=== PATIENT | female | born 1980 | race Caucasian/White ===

== ENCOUNTER → 2022-12-24 11:23 | Outpatient (BNVA) | payer OTHER, SELFPAY | PROVIDERS: Visit Provider Physician Assistant Surgical ==

== ENCOUNTER 2023-01-23 10:57 | Outpatient (AMB) | payer OTHER, SELFPAY ==
--- NOTE | 2023-01-23 10:59 | MHC.OFFVISWM ---
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 Then had 2 pregnancies. Developed perforated gastric ulcer in 2017 and had emergent laparoscopic surgery to repair. Was hospitalized for 1 week without complications. Her goal is to get off metoprolol and have a healthy more active life. . She reports first being concerned about her weight since age 10. She lives with and 2 children. She is stay at home parent. She wakes at: 6:30 am, bed at 10:30 - takes 60 - 90 minutes to fall asleep. Uses CPAP nightly. Breakfast: 6:45 am - 2 eggs with cheese, 1 slice toast with PB or avocado or butter. Or potatoes. Coffee 1-2 cups with unsweetened almond milk. Lunch: 12 -1pm - PB &J sandwich or leftovers, water Dinner: 5-6 pm - 5 oz protein and roasted potatoes 1 cup and 2 cups vegetables. After dinner: kettle corn, pastries - 1-2 servings per night. Other snacks: mid morning half bagel with cream cheese. Afternoon - another cup of coffee with spoon of PB or chips or popcorn Liquids: no soda, no fruit drinks. Drinks 2-3 cans seltzer per day Alcohol intake: sober for 2 years - went to detox to quit her alcoholism. tobacco: none since GBP, marijuana: none x 2 years Exercise: now has PF membership - started at gym last week. 3d/wk- treadmill x 15 minutes, speed 3, interval incline - ? calories. then knees hurt and she gets off. Then goes to rower or recumbent bike - 15 - 20 minutes. Last mammogram: Apr 2022 - benign Last pap smear: November 2022 control method: vasectomy colonoscopy - x 3 - all normal fathter with colon cancer. EGC - August 2021 - all normal ANT: 8 ESS: 7 GERD: 16 QOL: 111 PFSH Surgical History (Updated 01/23/23 @ 11:08 by Carlene Orellana PA-C) Hx of cholecystectomy Hx of gastric bypass Hx of tonsillectomy Family History Mother Diverticulitis Depression Anxiety Father Colon cancer Epilepsy Osteoarthritis Acquired underactive thyroid Afib Sister Depression Anxiety Sister Anxiety Depression Sister Depression Anxiety Sister Endometriosis Son ADHD Autism Son ADHD Autism Social History (Updated 12/24/22 @ 11:32 by Kena Alex [facility]) Alcohol intake: former Patient Tobacco Use Status: Former Tobacco user Quit Date: 14 YRS AGO Physical Exam Const General: cooperative, no acute distress and well developed Nutritional Appearance: obese Orientation/consciousness: patient oriented x3 HEENT Head: Yes normal to inspection Neck Neck: Yes normal visual inspection Thyroid: Thyroid normal Resp Effort & Inspection: normal respiratory effort Auscultation: clear to auscultation bilaterally Cardio Rate: regular rate Rhythm: regular rhythm Heart sounds: S1 normal heart sound present, S2 normal heart sound present and no murmurs GI Inspection: No distended and Yes obesity Palpation (GI): Soft to palpation, nontender and no guarding Skin General skin exam: no rashes or lesions noted and other (warm and dry) Wounds: no wounds Hair: normal Neuro General: patient oriented x3 Extrem General: Yes no pedal edema and Yes no calf tenderness Psych Attitude: cooperative Thought process: Normal thought process present Thought content: Normal thought content present Insight: Good insight present (Psych) Judgement: Good judgement present (Psych) Assessment & Plan Assessment & Plan (1) Morbid obesity: Code(s): E66.01 - Morbid (severe) obesity due to excess calories Plan: This is a 42 yo woman s/p GBP then emergent surgery for perforated gastric ulcer 7 years later and hx of alcoholism. She has been sober for 2 years. I told her that I would discuss her case with our biomedical engineering technologist to evaluate her appropriateness for revision surgery. We are obtaining OR reports form GBP, ulcer [facility] Patient has significant trauma history and has restarted old habits. She wants to find a therapist - I recommended she start wit [facility] referrals. 1. Adequate sleep of 7-8 hours per night discussed, must use CPAP nightly 2. Healthy meal plan - stop all carbonated beverages, and snacking. All meals/MR's need to take 20 -30 minutes to complete 8am - 30 gram shake 9am coffee 11 am - yogurt or bar 2 pm- shake 5 pm- dinner of 4 oz lean protein, 4 oz vegetable, 1/2 serving fruit 8pm - bar or yogurt Exercise - Cardio 4 d week = 10 edouard/minute or recumbent bike or rower - 350 calories burned 3 d/ wk - circuit room 10/10/[address] videos at home The importance of avoiding and breast feeding for at least 18 months after bariatric surgery was discussed in the information session and was reinforced today. Pt will purchase body composition analyzer (recommended list given to patient) and weight herself weekly. Next appt with me in 3 weeks. Text me with any questions and weekly weights. Patient is morbidly obese and is not considered stable at this time.?I spent a total of 60 minutes reviewing/updating records, examining the patient and counseling the patient on weight management as detailed above. (2) Hx of gastric bypass: Comment: [facility] 2009 Code(s): Z98.84 - Bariatric surgery status (3) Pre-op evaluation: Code(s): Z01.818 - Encounter for other preprocedural examination (4) Steatosis, liver: Code(s): K76.0 - Fatty (change of) liver, not elsewhere classified (5) GERD (gastroesophageal reflux disease): Code(s): K21.9 - Gastro-esophageal reflux disease without esophagitis (6) Depression with anxiety: Code(s): F41.8 - Other specified anxiety disorders (7) Eczema: Code(s): L30.9 - Dermatitis, unspecified (8) AMIE on CPAP: Code(s): G47.33 - Obstructive sleep apnea (adult) (pediatric) (9) SVT (supraventricular tachycardia): Code(s): I47.1 - Supraventricular tachycardia (10) Perforated gastric ulcer: Comment: repaired 2017 Code(s): K25.5 - Chronic or unspecified gastric ulcer with perforation Orders: Orders Vitamin B12 and Folate Today E66.01 - Morbid (severe) obesity due to excess calories, K21.9 - Gastro-esophageal reflux disease without esophagitis, K25.5 - Chronic or unspecified gastric ulcer with perforation, Z01.818 - Encounter for other preprocedural examination, Z98.84 - Bariatric surgery status Comprehensive Met. Panel Today E66.01 - Morbid (severe) obesity due to excess calories, K21.9 - Gastro-esophageal reflux disease without esophagitis, K25.5 - Chronic or unspecified gastric ulcer with perforation, Z01.818 - Encounter for other preprocedural examination, Z98.84 - Bariatric surgery status C Reactive Protein Today E66.01 - Morbid (severe) obesity due to excess calories, K21.9 - Gastro-esophageal reflux disease without esophagitis, K25.5 - Chronic or unspecified gastric ulcer with perforation, Z01.818 - Encounter for other preprocedural examination, Z98.84 - Bariatric surgery status Ferritin Today E66.01 - Morbid (severe) obesity due to excess calories, K21.9 - Gastro-esophageal reflux disease without esophagitis, K25.5 - Chronic or unspecified gastric ulcer with perforation, Z01.818 - Encounter for other preprocedural examination, Z98.84 - Bariatric surgery status Hemoglobin A1c Today E66.01 - Morbid (severe) obesity due to excess calories, K21.9 - Gastro-esophageal reflux disease without esophagitis, K25.5 - Chronic or unspecified gastric ulcer with perforation, Z01.818 - Encounter for other preprocedural examination, Z98.84 - Bariatric surgery status Insulin Today E66.01 - Morbid (severe) obesity due to excess calories, K21.9 - Gastro-esophageal reflux disease without esophagitis, K25.5 - Chronic or unspecified gastric ulcer with perforation, Z01.818 - Encounter for other preprocedural examination, Z98.84 - Bariatric surgery status IRON PROFILE Today E66.01 - Morbid (severe) obesity due to excess calories, K21.9 - Gastro-esophageal reflux disease without esophagitis, K25.5 - Chronic or unspecified gastric ulcer with perforation, Z01.818 - Encounter for other preprocedural examination, Z98.84 - Bariatric surgery status Lipid Panel Today E66.01 - Morbid (severe) obesity due to excess calories, K21.9 - Gastro-esophageal reflux disease without esophagitis, K25.5 - Chronic or unspecified gastric ulcer with perforation, Z01.818 - Encounter for other preprocedural examination, Z98.84 - Bariatric surgery status PTHI Today E66.01 - Morbid (severe) obesity due to excess calories, K21.9 - Gastro-esophageal reflux disease without esophagitis, K25.5 - Chronic or unspecified gastric ulcer with perforation, Z01.818 - Encounter for other preprocedural examination, Z98.84 - Bariatric surgery status TSH reflex Free T4 Today E66.01 - Morbid (severe) obesity due to excess calories, K21.9 - Gastro-esophageal reflux disease without esophagitis, K25.5 - Chronic or unspecified gastric ulcer with perforation, Z01.818 - Encounter for other preprocedural examination, Z98.84 - Bariatric surgery status Vitamin A Today E66.01 - Morbid (severe) obesity due to excess calories, K21.9 - Gastro-esophageal reflux disease without esophagitis, K25.5 - Chronic or unspecified gastric ulcer with perforation, Z01.818 - Encounter for other preprocedural examination, Z98.84 - Bariatric surgery status Vitamin B1 Today E66.01 - Morbid (severe) obesity due to excess calories, K21.9 - Gastro-esophageal reflux disease without esophagitis, K25.5 - Chronic or unspecified gastric ulcer with perforation, Z01.818 - Encounter for other preprocedural examination, Z98.84 - Bariatric surgery status Vitamin D 25-OH Total Today E66.01 - Morbid (severe) obesity due to excess calories, K21.9 - Gastro-esophageal reflux disease without esophagitis, K25.5 - Chronic or unspecified gastric ulcer with perforation, Z01.818 - Encounter for other preprocedural examination, Z98.84 - Bariatric surgery status Zinc Today E66.01 - Morbid (severe) obesity due to excess calories, K21.9 - Gastro-esophageal reflux disease without esophagitis, K25.5 - Chronic or unspecified gastric ulcer with perforation, Z01.818 - Encounter for other preprocedural examination, Z98.84 - Bariatric surgery status FL upper GI w air Today E66.01 - Morbid (severe) obesity due to excess calories, K21.9 - Gastro-esophageal reflux disease without esophagitis, K25.5 - Chronic or unspecified gastric ulcer with perforation, Z01.818 - Encounter for other preprocedural examination, Z98.84 - Bariatric surgery status Complete Blood Count Auto Diff Today E66.01 - Morbid (severe) obesity due to excess calories, K21.9 - Gastro-esophageal reflux disease without esophagitis, K25.5 - Chronic or unspecified gastric ulcer with perforation, Z01.818 - Encounter for other preprocedural examination, Z98.84 - Bariatric surgery status H Pylori Breath Test Today E66.01 - Morbid (severe) obesity due to excess calories, K21.9 - Gastro-esophageal reflux disease without esophagitis, K25.5 - Chronic or unspecified gastric ulcer with perforation, Z01.818 - Encounter for other preprocedural examination, Z98.84 - Bariatric surgery status Referrals Behavioral Health Referral E66.01 - Morbid (severe) obesity due to excess calories, K21.9 - Gastro-esophageal reflux disease without esophagitis, K25.5 - Chronic or unspecified gastric ulcer with perforation, Z01.818 - Encounter for other preprocedural examination, Z98.84 - Bariatric surgery status Nutrition/Dietitian Referral E66.01 - Morbid (severe) obesity due to excess calories, K21.9 - Gastro-esophageal reflux disease without esophagitis, K25.5 - Chronic or unspecified gastric ulcer with perforation, Z01.818 - Encounter for other preprocedural examination, Z98.84 - Bariatric surgery status Coding Level of Care Code New Pt Level 5 (02508) Diagnoses Morbid obesity E66.01 Hx of gastric bypass Z98.84 Pre-op evaluation Z01.818 Steatosis, liver K76.0 GERD (gastroesophageal reflux disease) K21.9 Depression with anxiety F41.8 Eczema L30.9 AMIE on CPAP G47.33 SVT (supraventricular tachycardia) I47.1 Perforated gastric ulcer K25.5
[2023-01-23 11:11] VITALS: BP 132/59; PULSE 72; TEMP 36.5; O2SAT 97; BMI 46.2
== END 2023-01-23 12:17 | disposition home or self-care (01) ==
PROVIDERS: Visit Provider Physician Assistant
DX: E66.01 Morbid (severe) obesity due to excess calories (principal); Z68.42 Body mass index [BMI] 45.0-49.9, adult; Z98.84 Bariatric surgery status; G47.33 Obstructive sleep apnea (adult) (pediatric)
CPT/HCPCS: 99205

== ENCOUNTER → 2023-01-23 10:57 | Outpatient (BNVA) | payer OTHER, SELFPAY | PROVIDERS: Visit Provider Physician Assistant ==

== ENCOUNTER → 2023-02-07 13:00 | Outpatient (BNVA) | payer OTHER, SELFPAY | PROVIDERS: PCP Internal Medicine; Referring Provider Physician Assistant; Visit Provider Dietitian, Registered | DX: E66.9 Obesity, unspecified (principal); Z98.84 Bariatric surgery status; Z71.3 Dietary counseling and surveillance | CPT/HCPCS: 97802 ==

== ENCOUNTER 2023-03-07 09:20 | Outpatient (REF) | payer OTHER, SELFPAY ==
[2023-03-07 10:39] LABS: MANUAL DIFF FLAG NO
[2023-03-07 11:07] LABS: Basophils Percent Auto 0.4 % (0-2); Eosinophils Absolute Auto 0.2 X10*3/uL (0.0-0.4); Eosinophils Percent Auto 2.1 % (0-4); Hematocrit 34.6 % (37.0-47.0); Hemoglobin 11.1 g/dl (12.0-16.0); Imm Gran Abs Auto 0.03 X10*3/uL (0.00-0.03); Imm Gran Pct Auto 0.4 % (0.0-0.4); Lymphocytes Percent Auto 26.9 % (20-40); Mean Corpuscular HGB Conc 32.1 g/dl (31.0-35.0); Mean Corpuscular Hemoglobin 26.5 pg (27.0-33.0); Mean Corpuscular Volume 82.6 fL (80.0-98.0); Monocytes Absolute Auto 0.5 X10*3/uL (0.1-1.2); Monocytes Percent Auto 6.9 % (2-11); Neutrophils Absolute Auto 4.6 x10*3/uL (2.0-8.3); Neutrophils Percent Auto 63.3 % (45-73); Platelet Count 231 X10*3/uL (160-400); Red Blood Count 4.19 X10*6/uL (4.20-5.50); Red Cell Distribution Width 14.6 % (11.0-16.0); White Blood Count 7.3 X10*3/uL (4.8-10.8)
[2023-03-07 11:39] LABS: C Reactive Protein 1.81 mg/dL (< or = 0.50); Iron 66 mcg/dL (30-160); Percent Iron Saturation 17 % (15-50); Total Iron Binding Capacity 380 mcg/dL (228-428); Unsaturated Iron Binding 314 ug/dL
[2023-03-07 11:52] LABS: Ferritin 12 ng/mL (10-250); Vitamin D 25-OH Total 46.8 ng/mL (>30)
[2023-03-07 12:01] LABS: Folate 14.1 ng/mL (> or = 4.0); Vitamin B12 420 pg/mL (200-900)
[2023-03-11 13:59] LABS: Calcium (PTHI) 9.2 mg/dL (8.6-10.2); PTHI 45 pg/mL (16-77)
[2023-03-12 02:24] LABS: Zinc 70 mcg/dL (60-130)
[2023-03-12 15:33] LABS: Vitamin B1 16 nmol/L (8-30)
[2023-03-14 00:39] LABS: Vitamin A 46 mcg/dL (38-98)
== END 2023-03-07 09:21 | disposition home or self-care (01) ==
LOC: HO.LAB 09:20
PROVIDERS: PCP Internal Medicine; Visit Provider Physician Assistant
DX: Z01.818 Encounter for other preprocedural examination (principal); E66.01 Morbid (severe) obesity due to excess calories; K21.9 Gastro-esophageal reflux disease without esophagitis; K25.5 Chronic or unspecified gastric ulcer with perforation; I47.1 Supraventricular tachycardia; D64.9 Anemia, unspecified; Z98.84 Bariatric surgery status
CPT/HCPCS: 36415; 82306; 82607; 82728; 82746; 83540; 83970; 84425; 84590; 84630; 85025; 86140

== ENCOUNTER 2023-03-07 09:20 | Outpatient (AMB) | payer OTHER, SELFPAY ==
--- NOTE | 2023-03-07 09:28 | A.OFFVIS_ITS ---
Intake VS Expanded 03/07/23 09:33 Height 5 ft 10 in Weight 318 lb 9.6 oz BMI 45.7 BP 123/59 L Blood Pressure Location Rt brachial Blood Pressure Position Sitting Pulse 77 Pulse Source Pulse Oximeter Temp 97.2 F Temperature Source Temporal Artery Scan Pulse Oximetry 96 Oxygen Delivery Method Room Air Body Fat 155.6 Body Fat Percentage 48.9 Free Fat Mass 163.0 Muscle Mass 154.8 Visceral Mass 15.0 Water Mass 116.4 BMR 2,352 Intake Visit Reasons: (OV) F/U SWL TO [facility] Allergies hydromorphone [From Dilaudid] Allergy (Intermediate, Verified 01/24/23 11:29) Hives Medication List - Last Reconciled 03/07/23 by Carlene Orellana PA-C bupropion HCl 100 mg PO BID dupilumab (Dupixent) 300 mg subcut Q2W metoprolol succinate ER 100 mg PO DAILY omeprazole 40 mg PO BID HPI HPI Comments History of Present Illness Details Pt is not a surgical candidate per Dr Plummer. She did not get the labs drawn but has results from August 2022: Hgb - 11.4 CMP - normal Hgb A1C - 5.0 Insulin - 11.8 Lipids - total 207, TRG - 145, LDL - 124, HDL - 57 TSH - 2.06 Presently wearing Holter monitor for SVT. She states that when she started our program she felt ddizzy and could not tolerate the meal plan Meal plan now: 7:30 am - 2 eggs and cheese with a slice of toast with olive oil or butter. Coffee with whole milk 11:30 am - leftovers and salad. (4 oz pr otien and not measuring vegetables - often canned from food pantry). water 3 pm - piece of fruit - bananas OR 1 1 T BL PB 5-6 pm- protein, veg and carb - small po rtions but not measuring has deli meat at night - but would have yogurt Exercise - gym - 3-4 d/week - bike - for 200 calories, rower - ? calories OR circuit room. Walks - 4 miles at 20 minute mile pace. PFSH Surgical History Hx of tonsillectomy Hx of gastric bypass Hx of cholecystectomy Family History Mother Diverticulitis Depression Anxiety Father Colon cancer Epilepsy Osteoarthritis Acquired underactive thyroid Afib Sister Depression Anxiety Sister Anxiety Depression Sister Depression Anxiety Sister Endometriosis Son ADHD Autism Son ADHD Autism Social History Alcohol intake: former Patient Tobacco Use Status: Former Tobacco user Quit Date: 14 YRS AGO Physical Exam Vital Signs: Last Vital Signs Temp 97.2 F 03/07/23 09:33 Pulse 77 03/07/23 09:33 BP 123/59 L 03/07/23 09:33 Pulse Ox 96 03/07/23 09:33 Oxygen Delivery Method Room Air 03/07/23 09:33 BMI result Body Mass Index 45.7 Assessment & Plan Assessment & Plan (1) Morbid obesity: Code(s): E66.01 - Morbid (severe) obesity due to excess calories Plan: 8am - 2 eggs with 1/2 c vegetables, Arian Killer Bread - thin slice. coffee - milk 11:30 - 30 gram shake - 3pm - yogurt, apple with 2 TBL PB or celery with PB, 6pm - 4 oz and 4 oz 9pm - alternate with 3pm Exercise - to burn 400 calories 5d/ week. Will have monthly visits for [facility]. Patient is morbidly obese and is not considered stable at this time. I spent 30 minutes in total with patient reviewing/updating records, examining the patient and counseling the patient on weight management as detailed above. (2) Hx of gastric bypass: Comment: [facility] 2009 Code(s): Z98.84 - Bariatric surgery status (3) SVT (supraventricular tachycardia): Code(s): I47.1 - Supraventricular tachycardia (4) Anemia: Code(s): D64.9 - Anemia, unspecified Coding Level of Care Code Est Pt Level 4 (68923) Diagnoses Morbid obesity E66.01 Hx of gastric bypass Z98.84 SVT (supraventricular tachycardia) I47.1 Anemia D64.9
[2023-03-07 09:33] VITALS: BP 123/59; PULSE 77; TEMP 36.2; O2SAT 96; BMI 45.7
== END 2023-03-07 10:20 | disposition home or self-care (01) ==
PROVIDERS: PCP Internal Medicine; Visit Provider Physician Assistant
DX: E66.01 Morbid (severe) obesity due to excess calories (principal); Z68.42 Body mass index [BMI] 45.0-49.9, adult; I47.1 Supraventricular tachycardia; D64.9 Anemia, unspecified
CPT/HCPCS: 99214

== ENCOUNTER 2023-04-15 09:45 | Outpatient (AMB) | payer OTHER, SELFPAY ==
--- NOTE | 2023-04-15 09:47 | A.OFFVIS_ITS ---
Intake VS Expanded 04/15/23 09:53 BP 128/52 L Blood Pressure Location Rt brachial Blood Pressure Position Sitting Pulse 76 Pulse Source Pulse Oximeter Temp 97.4 F Temperature Source Tympanic Pulse Oximetry 97 Oxygen Delivery Method Room Air Height 5 ft 10 in Weight 318 lb 3.2 oz BMI 45.7 Body Fat % 50.5 Body Fat Mass 160.8 Fat Free Mass 157.4 Visceral Fat Rating 16.0 Body Water % 35.3 Body Water Mass 112.4 Muscle Mass/Score 149.4 Basal Metabolic Rate/Score 2,285 Intake Visit Reasons: (OV) F/U [facility] Allergies hydromorphone [From Dilaudid] Allergy (Intermediate, Verified 01/24/23 11:29) Hives HPI HPI Comments 2 History of Present Illness Details Pt is s/p GBP and is not a surgical candidate for revision due to complications post op. Started [facility] program January 23 at 322 lbs. Saw Lucille once and wants a food based plan, had appt with Tania, no follow up planned. Recovering from COVID now unable to exercise for 1.5 weeks, not restarted yet. No weight loss. 7 am - 1-2 eggs cheese and icelandic muffi n. coffee - soymilk fruit mid morning 12:30 - leftovers - not measuring, 3-4 o z proten and carbs some vegetables. 6pm - 4 oz protein, cravs and vegetable (not measured) and 4 oz 9pm - raw vegetables and yogurt dip or P B Exercise - gym - 4 days/ week. bicycle - hill program - 30 minutes OR treadmill random cycle - 30 minutes ? calories burned. PFSH Surgical History Hx of tonsillectomy Hx of gastric bypass Hx of cholecystectomy Family History Mother Diverticulitis Depression Anxiety Father Colon cancer Epilepsy Osteoarthritis Acquired underactive thyroid Afib Sister Depression Anxiety Sister Anxiety Depression Sister Depression Anxiety Sister Endometriosis Son ADHD Autism Son ADHD Autism Social History Alcohol intake: former Patient Tobacco Use Status: Former Tobacco user Quit Date: 14 YRS AGO Assessment & Plan Assessment & Plan (1) Morbid obesity: Code(s): E66.01 - Morbid (severe) obesity due to excess calories Plan: Pt is not following our meal and exericseplans, does not seem to understand why this woudl work for her. Using food pantry for food mostly. eal- breakfast 8-9am - 2 eggs with 1/2 veg and 1 slice homemade ww bread. coffee with soymilk lunch - shake dinner - 4 oz protien and 4 oz combo of healthy carbs and vegetables snack - raw vegetables with yougrt dip or PB. Next appt month, scheduled with Tania johnson. Encouraged to text me with 2 lbs per week. Patient is morbidly obese and is not considered stable at this time. I spent 30 minutes in total with patient reviewing/updating records, examining the patient and counseling the patient on weight management as detailed above. Needs to increase exercise - 2,000 edouard per week on cradio at least 4d/ week and 3d ST per week - wants to do weights. UE - 3 [id number] lbs 15 reps , 3 sets Abd - 2 mahicnes (2) Hx of gastric bypass: Comment: [facility] 2009 Code(s): Z98.84 - Bariatric surgery status Coding Level of Care Code Est Pt Level 4 (94722) Diagnoses Morbid obesity E66.01 Hx of gastric bypass Z98.84
[2023-04-15 09:53] VITALS: BP 128/52; PULSE 76; TEMP 36.3; O2SAT 97; BMI 45.7
== END 2023-04-15 10:39 | disposition home or self-care (01) ==
PROVIDERS: PCP Internal Medicine; Visit Provider Physician Assistant
DX: E66.01 Morbid (severe) obesity due to excess calories (principal); Z68.42 Body mass index [BMI] 45.0-49.9, adult; Z98.84 Bariatric surgery status
CPT/HCPCS: 99214

== ENCOUNTER → 2023-04-15 09:45 | Outpatient (BNVA) | payer OTHER, SELFPAY | PROVIDERS: PCP Internal Medicine; Visit Provider Physician Assistant ==

== ENCOUNTER 2023-05-08 09:45 | Outpatient (AMB) | payer OTHER, SELFPAY ==
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
--- OUTSIDE RECORDS SUMMARY | 2023-05-08 10:11 | XMS_ITS | Patient Health Record ---
Author Name Unknown Organization [address] [facility] Address [address] [facility] [address] [place] [address] Care Team Providers Care Bootmaker Hand Name Role Phone CHAN GUTIERRES Unavailable [phone] DAYLIN CASILLASSAIRA Tejada Unavailable ALLERGIES Allergen (clinical drug ingredient) Drug/Non Drug Allergy documented on EMR Reaction Allergy Type Onset Date Status hydromorphone Dilaudid hives Drug Allergy Act janet RESULTS Component Value Reference Range Notes LIPID PANEL, STANDARD Reviewed date:09/19/2022 02:51:41 PM Interpretation: Performing Lab:NL2, [facility] [id number] Danay Fisher Notes/Report: FASTING: YES FASTING:YES 0; 0; 0; 0; 0; 0 CHOLESTEROL, TOTAL 207 <200 mg/dL HDL CHOLESTEROL 57 > OR = 50 mg/dL TRIGLYCERIDES 145 <150 mg/dL LDL-CHOLESTEROL 124 Reference range: <100 Desirable range <100 mg/dL for primary prevention; <70 mg/dL for patients with CHD or diabetic patients with > or = 2 CHD risk factors. LDL-C is now calculated using the Shirley calculation, which is a validated novel method providing better accuracy than the Friedewald equation in the estimation of LDL-C. Josias BURNETT et al. SAHARA. 2013;310(19): 8286-4025 (http://education.MycoTechnology.Smart Plate/faq/ZUY917) CHOL/HDLC RATIO 3.6 <5.0 (calc) NON HDL CHOLESTEROL 150 <130 mg/dL (calc) For patients with diabetes plus 1 major ASCVD risk factor, treating to a non-HDL-C goal of <100 mg/dL (LDL-C of <70 mg/dL) is considered a therapeutic option. COMPREHENSIVE METABOLIC PANLora L Reviewed date:09/19/2022 07:58:36 AM Interpretation: Performing Lab:NL[facility], [facility] [address] Danay Fisher Notes/Report: 0; 0; 0; 0; 0; 0 FASTING:YES FASTING: YES GLUCOSE 89 65-99 mg/dL Fasting reference interval UREA NITROGEN (BUN) 14 7-25 mg/dL CREATININE 0.77 0.50-0.99 mg/dL EGFR 99 > OR = 60 mL/min/1.73m2 The eGFR is based on the CKD-EPI 2020 equation. To calculate the new eGFR from a previous Creatinine or Cystatin C result, go to https://www.kidney.org/pr ofessionals/ kdoqi/gfr%5Fcalculator BUN/CREATININE RATIO NOT APPLICABLE 6-22 (calc) SODIUM 136 135-146 mmol/L POTASSIUM 3.9 3.5-5.3 mmol/L CHLORIDE 104 98-110 mmol/L CARBON DIOXIDE 28 20-32 mmol/L CALCIUM 8.6 8.6-10.2 mg/dL PROTEIN, TOTAL 6.7 6.1-8.1 g/dL ALBUMIN 3.9 3.6-5.1 g/dL GLOBULIN 2.8 1.9-3.7 g/dL (calc) ALBUMIN/GLOBULIN RATIO 1.4 1.0-2.5 (calc) BILIRUBIN, TOTAL 0.4 0.2-1.2 mg/dL ALKALINE PHOSPHATASE 90 31-125 U/L AST 12 10-30 U/L ALT 11 6-29 U/L CBC (INCLUDES DIFF/PLT) Reviewed date:09/19/2022 02:51:37 PM Interpretation: Performing Lab:YUSRA2, [facility] [address] Danay Fisher Notes/Report: 0; 0; 0; 0; 0; 0 FASTING:YES FASTING: YES WHITE BLOOD CELL COUNT 8.1 3.8-10.8 Thousand/ uL RED BLOOD CELL COUNT 4.09 3.80-5.10 Million/uL HEMOGLOBIN 11.4 11.7-15.5 g/dL HEMATOCRIT 33.5 35.0-45.0 % MCV 81.9 80.0-100.0 fL MCH 27.9 27.0-33.0 pg MCHC 34.0 32.0-36.0 g/dL RDW 12.9 11.0-15.0 % PLATELET COUNT 208 140-400 Thousand/uL MPV 11.4 7.5-12.5 fL ABSOLUTE NEUTROPHILS 5111 2629-7434 cells/uL ABSOLUTE LYMPHOCYTES 2236 850-3900 cells/uL ABSOLUTE MONOCYTES 559 200-950 cells/uL ABSOLUTE EOSINOPHILS 162 15-500 cells/uL ABSOLUTE BASOPHILS 32 0-200 cells/uL NEUTROPHILS 63.1 LYMPHOCYTES 27.6 MONOCYTES 6.9 EOSINOPHILS 2.0 BASOPHILS 0.4 URINALYSIS, COMPLETE Reviewed date:09/19/2022 02:50:53 PM Interpretation: Performing Lab:PASHA, [facility] [address] Danay Fisher Notes/Report: 0; 0; 0; 0; 0; 0 FASTING:YES FASTING: YES COLOR YELLOW YELLOW APPEARANCE CLEAR CLEAR SPECIFIC GRAVITY 1.016 1.001-1.035 PH 7.0 5.0-8.0 GLUCOSE NEGATIVE NEGATIVE BILIRUBIN NEGATIVE NEGATIVE KETONES NEGATIVE NEGATIVE OCCULT BLOOD NEGATIVE NEGATIVE PROTEIN NEGATIVE NEGATIVE NITRITE NEGATIVE NEGATIVE LEUKOCYTE ESTERASE TRACE NEGATIVE WBC NONE SEEN < OR = 5 /HPF RBC NONE SEEN < OR = 2 /HPF SQUAMOUS EPITHELIAL CELLS 0-5 < OR = 5 /HPF BACTERIA NONE SEEN NONE SEEN /HPF HYALINE CAST NONE SEEN NONE SEEN /LPF NOTE This urine was analyzed for the presence of WBC, RBC, bacteria, casts, and other formed elements. Only those elements seen were reported. HEMOGLOBIN A1c Reviewed date:09/19/2022 07:58:36 AM Interpretation: Performing Lab:[employer], [facility] [address] Danay Fisher Notes/Report: FASTING: YES FASTING:YES 0; 0; 0; 0; 0; 0 HEMOGLOBIN A1c 5.0 <5.7 % of total Hgb For the purpose of screening for the presence of diabetes: <5.7% Consistent with the absence of diabetes 5.7-6.4% Consistent with increased risk for diabetes (prediabetes) > or =6.5% Consistent with diabetes This assay result is consistent with a decreased risk of diabetes. Currently, no consensus exists regarding use of hemoglobin A1c for diagnosis of diabetes in children. According to [place] Diabetes Association (ADA) guidelines, hemoglobin A1c <7.0% represents optimal control in non- diabetic patients. Different metrics may apply to specific patient populations. Standards of Medical Care in Diabetes(ADA). INSULIN Reviewed date:09/19/2022 07:58:36 AM Interpretation: Performing Lab:NL2, [facility] [address] Danay Fisher Notes/Report: 0; 0; 0; 0; 0; 0 FASTING:YES FASTING: YES INSULIN 11.8 Reference Range < or = 18.4 Risk: Optimal < or = 18.4 Moderate NA High >18.4 Adult cardiovascular event risk category cut points (optimal, moderate, high) are based on Insulin Reference Interval studies performed at [facility] in 2021. TSH Reviewed date:09/19/2022 07:58:36 AM Interpretation: Performing Lab:NL2, [facility] [address] Danay Fisher Notes/Report: 0; 0; 0; 0; 0; 0 FASTING:YES FASTING: YES TSH 2.06 Reference Range > or = 20 Years 0.40-4.50 Ranges First trimester 0.26-2.66 Second trimester 0.55-2.73 Third trimester 0.43-2.91 REASON FOR REFERRAL Reason OBGYN Diagnosis 1 Pap smear for cervic al cancer screening (Z12.4) Referral Organization [facility] Referring Provider First Name CHAN Referring Provider Last Name BHAVIK Referring Provider Speciality Internal M edicine Referred Provider Specialty OB - Gynecol ogy General Notes Pt has info for Amirah Rivas, she will call to book Clinical Notes Elizabeth Castaneda 0 09/17/2022 11:33:08 AM > Referral Priority Routine Diagnosis 1 Attention deficit hy peractivity disorder (ADHD), unspecified ADHD type (F90.9) Referral Organization [facility] Referring Provider First Name CHAN Referring Provider Last Name BHAVIK Referring Provider Speciality Internal M edicine Referred Provider Specialty Psychiatry General Notes Provider gave Pt a l ist of places to call to book, she will let us know if they need referral Clinical Notes Elizabeth Castaneda 0 09/17/2022 11:34:42 AM > Referral Priority Routine Reason Dry and cracked skin on feet Diagnosis 1 Dry skin (L85.3) Referral Organization [facility] Referring Provider First Name CHAN Referring Provider Last Name BHAVIK Referring Provider Speciality Internal edicine Referred Provider Specialty Podiatry General Notes Waiting for note kieran l fax to [facility] for dry cracked feet. Pt has information will call and book appt Clinical Notes Elizabeth Castaneda 0 09/17/2022 11:37:34 AM > Referral Priority Routine Reason Dr. Rodriguez Diagnosis 1 Screening for colon cancer (Z12.11) Referral Organization [facility] Referring Provider First Name CHAN Referring Provider Last Name BHAVIK Referring Provider Speciality Internal edicine Referred Provider Specialty Gastroentero logy General Notes Waiting for note to fax to Dr. Rodriguez Clinical Notes Elizabeth Castaneda 0 09/25/2022 11:27:14 AM >, Elizabeth Castaneda 09/25/2022 01:43:28 PM >Faxed via computer and fax, Elizabeth Castaneda 10/02/2022 04:24:44 PM >received fax with appt details for 08/15/23 @ 1:30 Referral Priority Routine MEDICATIONS Medication SIG (Take, Route, Frequency, Duration) Notes Start Date End Date Status Dupixent 300 MG/2ML as directed Subcutaneous Active metFORMIN HCl ER 500 MG TAKE 1 TABLET BY MOUTH EVERY DAY WITH EVENING MEAL for 30 Active Nirmatrelvir&Ritonavir 300/100 20 x 150 MG & 10 x 100MG 3 tablets Orally Twice a day for 5 days 03/18/2023 Active Esomeprazole Magnesium 40 MG 1 capsule Orally twice a day for 30 days Active Metoprolol Succinate ER 100 MG 1 tablet Orally Once a day for 90 days Active buPROPion HCl 100 MG TAKE 1 TABLET BY [facility] TWICE A DAY for 90 Active Multi Complete - as directed Orally Active IMMUNIZATIONS Vaccine Route Administration Date Status Comme nts influenza IM Intramuscular 03/06/2023 Administered SOCIAL HISTORY Sex Assigned At : Social History Observation Description Sex Assigned At Unknown PROBLEMS Problem Type ICD Code Onset Dates Problem Status W/U Status Risk SNOMED Code Notes Problem Other obesity (E66.8) Active confirmed 481615918 Problem Vitamin D deficiency (E55.9) Active confirmed 40350931 Problem Attention deficit hyperactivity disorder (ADHD), unspecified ADHD type (F90.9) Active confirmed Attention deficit hyperactivity disorder (705652451) Problem PCOS (polycystic ovarian syndrome) (E28.2) Active confirmed 224379249 Problem BMI 45.0-49.9, adult (Z68.42) Active confirmed 871966011 Problem Cough (R05.9) Active confirmed Cough (4 2582583) Problem GERD without esophagitis (K21.9) Active confirmed 598010856 VITAL SIGNS Heart Rate 80 /min 03/06/2023 Oximetry 97 % 03/06/2023 Blood pressure diastolic 80 mm Hg 03/06/2023 Height 69 in 03/06/2023 Blood pressure systolic 120 mm Hg 03/06/2023 Weight 321.5 lbs 03/06/2023 BMI 47.47 kg/m2 03/06/2023 Encounters Encounter Location Date Provider Diagnosis [facility] [address] [place] [address] 11/26/2022 CHAN BHAVIK [facility] [address] [place] [address] 09/17/2022 CHAN BHAVIK PCOS (polycystic ova lillian syndrome) E28.2 ; Other obesity E66.8 ; BMI 45.0-49.9, adult Z68.42 ; Dry skin dermatitis L85.3 ; Other eczema L30.8 ; GERD without esophagitis K21.9 and History of supraventricular tachycardia Z86.79 [facility] [address] [place] [address] 09/25/2022 CHAN BHAVIK Other obesity E66.8 ; BMI 45.0-49.9, adult Z68.42 ; Dry skin dermatitis L85.3 ; PCOS (polycystic ovarian syndrome) E28.2 ; Other eczema L30.8 ; GERD without esophagitis K21.9 ; History of supraventricular tachycardia Z86.79 and Vitamin D deficiency E55.9 [facility] [address] [place] [address] 10/23/2022 CHAN BHAVIK Other obesity E66.8 ; Wellness examination Z00.00 ; BMI 45.0-49.9, adult Z68.42 ; Dry skin dermatitis L85.3 ; PCOS (polycystic ovarian syndrome) E28.2 ; Other eczema L30.8 ; GERD without esophagitis K21.9 ; History of supraventricular tachycardia Z86.79 and Vitamin D deficiency E55.9 [facility] [address] [place] [address] 11/26/2022 CHAN BHAVIK Other obesity E66.8 ; BMI 45.0-49.9, adult Z68.42 ; Dry skin dermatitis L85.3 ; PCOS (polycystic ovarian syndrome) E28.2 ; Other eczema L30.8 ; GERD without esophagitis K21.9 ; History of supraventricular tachycardia Z86.79 and Vitamin D deficiency E55.9 [facility] [address] [place] [address] 12/26/2022 CHAN BHAVIK Other obesity E66.8 ; BMI 45.0-49.9, adult Z68.42 ; Dry skin dermatitis L85.3 ; PCOS (polycystic ovarian syndrome) E28.2 ; Other eczema L30.8 ; GERD without esophagitis K21.9 ; History of supraventricular tachycardia Z86.79 and Vitamin D deficiency E55.9 [facility] [address] [place] [address] 03/06/2023 CHAN BHAVIK Other obesity E66.8 ; BMI 45.0-49.9, adult Z68.42 ; Dry skin dermatitis L85.3 ; PCOS (polycystic ovarian syndrome) E28.2 ; Other eczema L30.8 ; GERD without esophagitis K21.9 ; History of supraventricular tachycardia Z86.79 ; Vitamin D deficiency E55.9 and Encounter for immunization Z23 [facility] [address] [place] [address] 03/18/2023 [facility] COVID-19 U07.1 and Cough R05.9 [facility] [address] [place] [address] 09/20/2022 CHAN BHAVIK [facility] [address] [address] 11/26/2022 CHAN BHAVIK [address] [place] [address] 11/26/[address] [facility] [address] [place] [address] 02/18/[address] [facility] [address] [place] [address] 09/14/[address] [facility] [address] [place] [address] 09/14/2022 CHAN BAHVIK [address] [place] [address] 10/11/2022 CHAN BHAVIK [address] [place] [address] [place] [address] 11/30/2022 CHAN BHAVIK [address] [place] [address] 12/12/2022 CHAN BHAVIK [address] [place] [address] [facility] [address] [place] [address] 02/24/[address] [facility] [address] [place] [address] 03/06/2023 CHAN BHAVIK [address] [place] [address] 03/16/2023 CHAN BHAVIK ASSESSMENTS Encounter Date Diagnosis Assessment Notes Treatment Notes Treatment Clinical Notes 09/17/2022 Other obesity (ICD-1 0 - E66.8) 09/17/2022 PCOS (polycystic ovarian syndrome) (ICD-10 - E28.2) 09/25/2022 Other obesity (ICD-1 0 - E66.8) 09/25/2022 BMI 45.0-49.9, adult (ICD-10 - Z68.42) 10/23/2022 Other obesity (ICD-1 0 - E66.8) 10/23/2022 Wellness examination (ICD-10 - Z00.00) 11/26/2022 Other obesity (ICD-1 0 - E66.8) 11/26/2022 BMI 45.0-49.9, adult (ICD-10 - Z68.42) 12/26/2022 Other obesity (ICD-1 0 - E66.8) 12/26/2022 BMI 45.0-49.9, adult (ICD-10 - Z68.42) 03/06/2023 Other obesity (ICD-1 0 - E66.8) 03/06/2023 BMI 45.0-49.9, adult (ICD-10 - Z68.42) 03/18/2023 COVID-19 (ICD-10 - U07.1) 03/18/2023 Cough (ICD-10 - R05.9) 03/06/2023 Dry skin dermatitis (ICD-10 - L85.3) 12/26/2022 Dry skin dermatitis (ICD-10 - L85.3) 11/26/2022 Dry skin dermatitis (ICD-10 - L85.3) 10/23/2022 BMI 45.0-49.9, adult (ICD-10 - Z68.42) 09/25/2022 Dry skin dermatitis (ICD-10 - L85.3) 09/17/2022 BMI 45.0-49.9, adult (ICD-10 - Z68.42) 09/17/2022 Dry skin dermatitis (ICD-10 - L85.3) 09/25/2022 PCOS (polycystic ovarian syndrome) (ICD-10 - E28.2) 10/23/2022 Dry skin dermatitis (ICD-10 - L85.3) 11/26/2022 PCOS (polycystic ovarian syndrome) (ICD-10 - E28.2) 12/26/2022 PCOS (polycystic ovarian syndrome) (ICD-10 - E28.2) 03/06/2023 PCOS (polycystic ovarian syndrome) (ICD-10 - E28.2) 03/06/2023 Other eczema (ICD-10 - L30.8) 12/26/2022 Other eczema (ICD-10 - L30.8) 11/26/2022 Other eczema (ICD-10 - L30.8) 09/25/2022 Other eczema (ICD-10 - L30.8) 10/23/2022 PCOS (polycystic ovarian syndrome) (ICD-10 - E28.2) 09/17/2022 Other eczema (ICD-10 - L30.8) 09/25/2022 GERD without esophagitis (ICD-10 - K21.9) 09/17/2022 GERD without esophagitis (ICD-10 - K21.9) 10/23/2022 Other eczema (ICD-10 - L30.8) 11/26/2022 GERD without esophagitis (ICD-10 - K21.9) 12/26/2022 GERD without esophagitis (ICD-10 - K21.9) 03/06/2023 GERD without esophagitis (ICD-10 - K21.9) 03/06/2023 History of supraventricular tachycardia (ICD-10 - Z86.79) 12/26/2022 History of supraventricular tachycardia (ICD-10 - Z86.79) 11/26/2022 History of supraventricular tachycardia (ICD-10 - Z86.79) 10/23/2022 GERD without esophagitis (ICD-10 - K21.9) 09/17/2022 History of supraventricular tachycardia (ICD-10 - Z86.79) 09/25/2022 History of supraventricular tachycardia (ICD-10 - Z86.79) 09/25/2022 Vitamin D deficiency (ICD-10 - E55.9) 10/23/2022 History of supraventricular tachycardia (ICD-10 - Z86.79) 11/26/2022 Vitamin D deficiency (ICD-10 - E55.9) 12/26/2022 Vitamin D deficiency (ICD-10 - E55.9) 03/06/2023 Vitamin D deficiency (ICD-10 - E55.9) 03/06/2023 Encounter for immunization (ICD-10 - Z23) 10/23/2022 Vitamin D deficiency (ICD-10 - E55.9) PLAN OF TREATMENT Next Appt Details Provider Name:CHAN BHAVIK, 1 07/29/2022 11:15:00 AM, [address], [place], [address], Insurance Providers Payer Name Payer Address Payer Phone Subscriber Number Group Number Insured Name Patient Relationship to Insured Coverage Start Date Coverage End Date [facility] [address] [place] [address] [id number] Nancy Wilkes Self - patient is the insured 2 MEDICATIONS ADMINISTERED Medication Instructions Date of Administration Dosage Notes MICC B12 INJECTION 09/25/2022 lot # [id number] MICC B12 INJECTION 10/23/2022 MICC B12 INJECTION 11/26/2022 [id number] MICC B12 INJECTION 12/26/2022 MEDICAL (GENERAL) HISTORY Medical History History ICD Code esophageal reflux SVT gestational DM hx alcoholism Eczema PCOS Surgical History Surgery Date(Month/Year) gallbladder gastric bypass stomach ulcer Hospitalization History Reason Date(Month/Year) detox , alcoholism January 2021
== END 2023-05-08 10:45 | disposition home or self-care (01) ==
LOC: HO.HBST 10:05
PROVIDERS: PCP Internal Medicine; Visit Provider Counselor Mental Health
DX: F32.A Depression, unspecified (principal); F41.0 Panic disorder [episodic paroxysmal anxiety]
CPT/HCPCS: 90791

== ENCOUNTER → 2023-05-08 09:45 | Outpatient (BNVA) | payer OTHER, SELFPAY | PROVIDERS: PCP Internal Medicine; Visit Provider Counselor Mental Health ==